=== PATIENT | female | born 1975 | race African-American/Black ===

== ENCOUNTER 2019-05-12 18:24 | Emergency (ER) | payer OTHER, SELFPAY ==
[2019-05-12] VITALS (7 sets, daily range): BP systolic 136–164; BP diastolic 79–99; PULSE 82–110; RESP 16–20; TEMP 37.2; O2SAT 94–100
--- NOTE | ~2019-05-12 | XR_ITS ---
EXAMINATION: XR chest 2V EXAM DATE: 05/12/2019 20:52 INDICATION: Shortness of breath, cough. Weakness. TECHNIQUE: Frontal and lateral projections of the chest obtained and reviewed. There is no prior marciano dy for comparison. FINDINGS: Some vaguely increased density over the lower lung zones, could be from dense breasts. Dif ficult to exclude acute infectious groundglass opacities, please clinically correlate. No confluent c onsolidation, pneumothorax or pleural effusion suspected. There are no osseous abnormalities identifi ed. IMPRESSION: Vaguely increased basilar density, artifactual versus acute groundglass opacities. Reviewed, dictated and finalized at location A. [facility] [employer]PER[employer] IMPRESSION: Vaguely increased basilar density, artifactual versus acute groundg lass opacities.
--- NOTE | 2019-05-12 18:29 | ECG_ITS ---
Measurements Intervals [place] Rate: 101 P: 58 [place]: 157 QRS: 1 QRSD: 89 T: 58 QT: 331 QTc: 430 Interpretive Statements SINUS TACHYCARDIA BORDERLINE R WAVE PROGRESSION, ANTERIOR LEADS BASELINE WANDER- I, II, AVR, AVL, AVF, V1 BORDERLINE ECG Electronically Signed On 05-12-2019 19:14:59 FORENSIC PSYCHOLOGIST by Phu Flores D.O.
[2019-05-12 18:51] LABS: Basophils Absolute Auto 0.1 K/mm3 (0.0-0.1); Basophils Percent Auto 0.4 % (0.2-1.2); Eosinophils Absolute Auto 0.1 K/mm3 (0-0.3); Eosinophils Percent Auto 0.4 % (0-4.4); Hematocrit 39.5 % (37.0-47.0); Hemoglobin 12.7 g/dL (12.0-15.0); Immature Granulocyte Absolute 0.26 K/mm3 (0.00-0.031); Immature Granulocyte Percent A 1.9 % (0-0.5); Lymphocytes Absolute Auto 2.68 K/mm3 (0.9-3.2); Lymphocytes Percent Auto 19.6 % (18.3-44.2); Mean Corpuscular HGB Conc 32.2 g/dl (32-36); Mean Corpuscular Hemoglobin 28.7 pg (26-34); Mean Corpuscular Volume 89.4 fl (80-100); Mean Platelet Volume 10.3 fl (7.4-10.4); Monocytes Absolute Auto 1.2 K/mm3 (0.1-0.6); Monocytes Percent Auto 8.4 % (2.6-8.5); Neutrophils Absolute Auto 9.5 K/mm3 (1.3-6.7); Neutrophils Percent Auto 69.3 % (45.5-73.1); Platelet Count Result 330 k/mm3 (150-375); Red Blood Count 4.42 M/mm3 (4.2-5.4); Red Cell Distribution Width 13.2 % (11.5-14.5); White Blood Count 13.7 K/mm3 (4.5-10.0)
--- NOTE | 2019-05-12 18:53 | ED.SOB ---
HPI - SOB/Dyspnea General Chief Complaint: Shortness of Breath/Dyspnea Stated Complaint: SOB Time Seen by Provider: 05/12/19 18:40 Source: patient and RN notes reviewed Mode of arrival: ambulatory Limitations: no limitations History of Present Illness HPI Narrative: Pt is a 43 y/o female presenting to the ED c/o SOB. Pt reports she has been experiencing SOB for 1 week. Pt states the SOB si worsened when lying down or with exertion. Pt notes she was seen previously for her Sx's and states she thinks it is the flu but I waited too long to come in so they didn't test me . Pt notes they prescribed her steroids which offers short term relief. Pt also reports CP when ambulating and nasal congestion. Pt states she has a Hx of HTN, but denies a Hx of DM. Pertinent past history: other (HTN) Onset (ago): week(s) (1) Exacerbating factors: lying flat and exertion Associated symptoms: chest pain (when ambulating) and other (Nasal congestion) Related Data Home Medications Medication Instructions Recorded Confirmed losartan 100 mg PO DAILY 05/12/19 05/12/19 Allergies Allergy/AdvReac Type Severity Reaction Status Date / Time No Known Allergies Allergy Verified 05/12/19 18:52 Review of Systems Review of Systems: All systems reviewed & are unremarkable except as noted in HPI and below ENT: Reports nasal congestion Cardiovascular: Cardiovascular: Reports chest pain with activity (Ambulating) Respiratory: Respiratory: Reports dyspnea PMFSH Past Medical History Medical History HTN (hypertension) Surgical History Surgical History No significant past surgical history Social History Social History Smoking status: Unknown if ever smoked Exam Narrative: Exam Narrative: GENERAL: Well-appearing, well-nourished, and in no acute distress. HEAD: Normocephalic, atraumatic. EYES: PERRLA and EOMI. ENT: Nares clear, Mucous membranes moist. NECK: Supple. CHEST: Bilateral wheeze. No respiratory distress. HEART: Regular rate and rhythm. No murmur heard. Normal peripheral pulses. ABDOMEN: Soft, non tender, nondistended, normal active bowel sounds. EXTREMITIES: Normal range of motion. No edema. SKIN: Warm, dry, no rash. NEURO: No focal deficits. Alert and oriented x3. PSYCH: Normal mood and affect. Course Course Emergency Course: Patient feeling much better, I discussed lab and chest x-ray findings. She does feel comfortable going home. Advised her to continue prednisone. Take antibiotic as prescribed. Vital Signs Vital signs: Vital Signs Temperature 37.2 C 05/12/19 18:35 Pulse Rate 110 H 05/12/19 18:35 Respiratory Rate 20 05/12/19 18:35 Blood Pressure 164/85 H 05/12/19 18:35 Pulse Oximetry 98 05/12/19 18:35 Temperature 37.2 C 05/12/19 18:35 Pulse Rate 88 05/12/19 21:13 Respiratory Rate 20 05/12/19 21:13 Blood Pressure 138/85 05/12/19 21:13 Pulse Oximetry 100 05/12/19 21:13 MDM - SOB/Dyspnea Lab Data Result diagrams: 05/12/19 18:47 05/12/19 18:47 Labs: Lab Results 05/12/19 05/12/19 Range/Units 18:47 18:47 WBC 13.7 H (4.5-10.0) K/mm3 RBC 4.42 (4.2-5.4) M/mm3 Hgb 12.7 (12.0-15.0) g/dL Hct 39.5 (37.0-47.0) % MCV 89.4 (80-100) fl MCH 28.7 (26-34) pg MCHC 32.2 (32-36) g/dl RDW 13.2 (11.5-14.5) % Plt Count 330 (150-375) k/mm3 MPV 10.3 (7.4-10.4) fl Immature Gran % (Auto) 1.9 H (0-0.5) % Neut % (Auto) 69.3 (45.5-73.1) % Lymph % (Auto) 19.6 (18.3-44.2) % Elbert % (Auto) 8.4 (2.6-8.5) % Eos % (Auto) 0.4 (0-4.4) % Baso % (Auto) 0.4 (0.2-1.2) % Lymph # (Auto) 2.68 (0.9-3.2) K/mm3 Elbert # (Auto) 1.2 H (0.1-0.6) K/mm3 Eos # (Auto) 0.1 (0-0.3) K/mm3 Baso # (Auto) 0.1 (0.0-0.1) K/mm3 Abs Immat Gran (auto) 0.26 H (0.00-0.031) K/mm3 Absolute Neuts
[2019-05-12 19:03] LABS: Blood Urea Nitrogen 13 mg/dL (7-17); Calcium 9.8 mg/dL (8.4-10.2); Carbon Dioxide 28 mmol/L (22-30); Chloride 102 mmol/L (98-107); Estimated CRCL calculation 87 ml/min; Estimated Glomerular Filt Rate > 60; Glucose 137 mg/dL (65-105); Potassium 4.2 mmol/L (3.4-5.0); Sodium 140 mmol/L (137-145)
--- NOTE | 2019-05-12 19:19 | PC.NURSE ---
assuming care of pt at this time, received report from jarrell collazo.
[2019-05-12] MEDS: IPRATROPIUM BR 0.02% INH SOLN 0.5 MG/2.5 ML VIAL 1 MG INHALATION (19:39)
[2019-05-12] MEDS: ALBUTEROL SULFATE NEB 2.5 MG/0.5 ML INH 10 MG INHALATION (19:39)
== END 2019-05-12 21:45 | disposition home or self-care (01) ==
PROVIDERS: Emergency Medicine; Emergency Provider Family Medicine
DX: J45.41 Moderate persistent asthma with (acute) exacerbation (principal); I10 Essential (primary) hypertension; R00.0 Tachycardia, unspecified; R94.31 Abnormal electrocardiogram [ECG] [EKG]
CPT/HCPCS: 36415; 71046; 80048; 85025; 93005; 99284